=== PATIENT | male | born 1990 | race Caucasian/White ===

== ENCOUNTER 2020-06-19 10:07 | Emergency (ER) | payer MEDICAID ==
[~2020-06-19] VITALS: Ht 172.7 cm; Wt 77.3 kg
[2020-06-19] MEDS ORDERED: triamcinolone acetonide 40mg/ml inj IM ONE (11:05)
[2020-06-19] MEDS ORDERED: HYDR28CR14 TOP (11:11)
[2020-06-19] MEDS ORDERED: KEN0.1O TP (11:11)
[2020-06-19 11:29] VITALS: BP 118/77
== END 2020-06-19 11:35 | disposition home or self-care (01) ==
LOC: ER 10:08
DX: L23.7 Allergic contact dermatitis due to plants, except food (principal); Z79.899 Other long term (current) drug therapy
CPT/HCPCS: 96372; 99283; J3301

== ENCOUNTER 2020-08-10 05:06 | Emergency (ER) | payer MEDICAID ==
[~2020-08-10] VITALS: Ht 172.7 cm; Wt 79.5 kg
[~2020-08-10 05:06] MED LIST: HYDR28CR14 TOP
[2020-08-10] MEDS ORDERED: triamcinolone acetonide 40mg/ml inj IM ONE (05:20)
[2020-08-10] MEDS ORDERED: TRIA15CR61 TOP (05:22)
[2020-08-10] MEDS ORDERED: PRED20TA PO (05:22)
[2020-08-10 05:32] VITALS: BP 144/91
== END 2020-08-10 05:36 | disposition home or self-care (01) ==
LOC: ER 05:06
DX: L23.7 Allergic contact dermatitis due to plants, except food (principal); Z79.899 Other long term (current) drug therapy
CPT/HCPCS: 96372; 99283; J3301

== ENCOUNTER 2021-04-16 13:36 | Emergency (ER) | payer MEDICAID, OTHER ==
[~2021-04-16] VITALS: Ht 172.7 cm; Wt 91.5 kg
[2021-04-16] MEDS ORDERED: TETanus/Pertussis (Acell)/Diphther VAC/PF (Tdap-Adult) 0.5ml syringe IMVAC ONE (16:05)
[2021-04-16] MEDS ORDERED: PRED20TA PO (16:12)
[2021-04-16] MEDS ORDERED: PRED10TA23 PO (16:12)
[2021-04-16] MEDS ORDERED: CIPR-202 PO (16:12)
[2021-04-16 16:36] VITALS: BP 118/73
[2021-04-16 16:43] LABS: BASOPHILS % (AUTO) 0.4 % (0-1); EOSINOPHILS # (AUTO) 0.2 X10'3 (0-0.9); EOSINOPHILS % (AUTO) 3.7 % (0-6); HEMATOCRIT 46.3 % (42.0-52.0); HEMOGLOBIN 15.6 g/dl (14.0-17.9); LYMPHOCYTES # (AUTO) 1.6 X10'3 (1.1-4.8); LYMPHOCYTES % (AUTO) 23.6 % (21-51); MEAN CORPUSCULAR HEMOGLOBIN 31.1 PG (27.0-31.0); MEAN CORPUSCULAR HGB CONC 33.6 g/dL (33.0-36.5); MEAN CORPUSCULAR VOLUME 92.6 FL (78-98); MEAN PLATELET VOLUME 8.5 FL (7.4-10.4); MONOCYTES # (AUTO) 0.5 X10'3 (0-0.9); MONOCYTES % (AUTO) 6.9 % (2-12); NEUTROPHILS # (AUTO) 4.4 X10'3 (1.8-7.7); NEUTROPHILS % (AUTO) 65.4 % (42-75); PLATELET COUNT 198 X10'3 (140-440); RED CELL DISTRIBUTION WIDTH 13.1 % (11.5-14.5); WHITE BLOOD COUNT 6.7 X10'3 (4.5-11.0)
[2021-04-16 16:47] LABS: CLARITY,URINE CLEAR (Clear); COLOR,URINE YELLOW (Yellow); GLUCOSE, URINE NEGATIVE (Neg); KETONES,URINE TRACE mg/dl (Neg); LEUKOCYTE ESTERASE ,URINE NEGATIVE (Neg); NITRITES, URINE NEGATIVE (Neg); OCCULT BLOOD,URINE NEGATIVE (Neg); PH,URINE 5.5 (4.8-8.0); PROTEIN,URINE NEGATIVE (Neg); UROBILINOGEN,URINE 0.2 E.U/dL (0.2-1.0)
[2021-04-16 16:56] LABS: UA COLLECTION TYPE VOIDED
[2021-04-16 17:00] LABS: ALANINE AMINOTRANSFERASE 20 U/L (12-78); ALBUMIN 4.1 G/DL (3.4-5.0); ALBUMIN/GLOBULIN RATIO 1.2 (1.1-1.5); ALKALINE PHOSPHATASE 40 IU/L (46-116); ANION GAP 9 (8-16); ASPARTATE AMINO TRANSFERASE 14 U/L (10-37); BILIRUBIN,TOTAL 0.8 MG/DL (0.1-1.0); BLOOD UREA NITROGEN 12 MG/DL (7-18); BUN/CREATININE RATIO 12.8 (5.4-32.0); CALCIUM 8.7 MG/DL (8.5-10.1); CHLORIDE 109 MMOL/L (99-107); CREATININE 0.94 MG/DL (0.60-1.10); GLUCOSE 94 MG/DL (70-104); POTASSIUM 3.6 MMOL/L (3.5-5.1); SODIUM 146 MMOL/L (135-145); TOTAL CARBON DIOXIDE 27.7 MMOL/L (24-32); TOTAL PROTEIN 7.5 G/DL (6.4-8.2); eGFR > 90 ML/MIN
== END 2021-04-16 17:55 | disposition home or self-care (01) ==
LOC: ER 13:37
DX: S91.332D Puncture wound without foreign body, left foot, subsequent encounter (principal); R60.0 Localized edema; L23.7 Allergic contact dermatitis due to plants, except food; M25.471 Effusion, right ankle; M25.472 Effusion, left ankle; Z79.2 Long term (current) use of antibiotics; Z79.899 Other long term (current) drug therapy; W22.8XXD Striking against or struck by other objects, subsequent encounter
CPT/HCPCS: 36415; 73630; 80053; 81003; 85025; 90471; 90715; 99284

== ENCOUNTER 2023-08-15 10:11 | Emergency (ER) | payer OTHER ==
[~2023-08-15] VITALS: Ht 175.3 cm; Wt 72.6 kg
[2023-08-15] MEDS ORDERED: ketorolac trometh. 30mg/ml inj. IM ONE (11:25)
--- NOTE | 2023-08-15 13:18 | NUR ---
VERIFIED WITH PA THAT PT DOES NOT REQUIRE HEAD CT, ABD KUB, OR FURTHER IMAGING GIVEN TRAUMATIC FALL. PA STATED GIVEN PT'S ASSESSMENT, THESE ARE NOT INDICATED AT THIS TIME.
[2023-08-15] MEDS ORDERED: IBUP-1986 PO ×2 (13:37)
--- NOTE | 2023-08-15 13:56 | NUR ---
boot applied by tech
--- NOTE | 2023-08-15 13:57 | NUR ---
education given on boot and RICE care for severe strain
[2023-08-15 14:24] VITALS: BP 123/67; PULSE 79; RESP 12; TEMP 97.8; O2SAT 99
== END 2023-08-15 14:26 | disposition home or self-care (01) ==
LOC: ER 10:12
DX: S93.402A Sprain of unspecified ligament of left ankle, initial encounter (principal); Z91.030 Bee allergy status; W19.XXXA Unspecified fall, initial encounter; Y93.89 Activity, other specified; Y92.89 Other specified places as the place of occurrence of the external cause; Y99.8 Other external cause status
CPT/HCPCS: 73590; 73610; 73630; 73650; 96372; 99285; J1885; L4360; 99284

== ENCOUNTER 2023-09-14 18:55 | Emergency (ER) | payer OTHER ==
[~2023-09-14] VITALS: Ht 175.3 cm; Wt 80.6 kg
[2023-09-14 19:27] VITALS: BP 119/65; PULSE 61; RESP 16; TEMP 98.5; O2SAT 97
== END 2023-09-14 23:43 | disposition left against medical advice (07) ==
LOC: ER 18:55
DX: R21 Rash and other nonspecific skin eruption (principal); Z53.21 Procedure and treatment not carried out due to patient leaving prior to being seen by health care provider
CPT/HCPCS: 99281